=== PATIENT | male | born 1970 | race Caucasian/White ===

== ENCOUNTER 2016-07-13 01:01 | Inpatient (IN) | payer BC, OTHER ==
[~2016-07-13] VITALS: Ht 180.3 cm; Wt 102.6 kg
[2016-07-13] MEDS ORDERED: NITROGLYCERIN 0.4 MG SL PER TAB CHARGE SL STA (01:23)
--- NOTE | 2016-07-13 01:27 | EMERGENCY ROOM VISIT NOTE ---
History Report prepared by Nimco: Peggy Calhoun Under the Supervision of: Dr. Becky Cast D.O. First contact with patient: 01:11 Chief Complaint: CARDIAC ASSESSMENT Stated Complaint: PRESSURE IN LEFT ARM,PULSE NOT NORMAL Nursing Triage Summary: Patient ambulatory to triage, states "Over the weekend, my left hand was numb. I thought it was carpal tunnel. Today, I felt like I needed to take a lot of deep breaths. Tonight, I checked my pulse while lying in bed and it felt like it was skipping beats. I developed a little bit of tightness in my chest after that." No cardiac history. History of Present Illness The patient is a 45 year old male who presents to the Emergency Room with complaints of an persistent irregular heartbeat starting [employer]. The patient states that a few days ago he had some numbness and soreness in his left arm and hand and thought it was possibly carpal tunnel. The patient states that earlier today he states that he felt like he need to take deep breaths. He states that he then was lying in bed and felt his heart was beating irregularly which worried him causing him to come into the ED tonight. The patient states that he has some shortness of breath still, and denies any increase of physical activity lately. The patient states that he does have some increase in stress the last couple weeks. The patient denies any recent increased in diaphoresis or fevers. The patient states that he has never had his cholesterol checked but states he does smoke cigarettes. The patient states that his father had a myocardial infarction at around the age of 60 and had to have a stent placed. Source of History: patient Onset: [employer] Position: chest Timing: other (persistent) Associated Symptoms: + SOB, + numbness (left arm), No diaphoresis, No fevers Note: Associated symptoms: left arm soreness. Review of Systems See HPI for pertinent positives & negatives. A total of 10 systems reviewed and were otherwise negative. Past Medical & Surgical Medical Problems: (1) Chest pain (2) No Known Active Medical Problems Family History Heart disease Social History Smoking Status: Current Every Day Smoker Marital Status: Housing Status: lives with significant other Occupation Status: employed Current/Historical Medications No Active Prescriptions or Reported Meds Allergies Coded Allergies: Apple (Verified Allergy, Unknown, LIPS SWELL, 07/13/16) Snyder (Verified Allergy, Unknown, LIPS SWELL, 07/13/16) Uncoded Allergies: NEMOIL (Allergy, Unknown, RASH, 07/13/16) Physical Exam Vital Signs Date Time Temp Pulse Resp B/P Pulse Ox O2 Delivery O2 Flow Rate FiO2 07/13/16 04:30 60 15 137/90 99 Room Air 07/13/16 04:15 60 16 139/80 98 Room Air 07/13/16 04:00 57 12 146/98 99 Room Air 07/13/16 03:45 59 13 137/89 99 Room Air 07/13/16 03:30 65 16 157/97 98 Room Air 07/13/16 03:15 66 14 150/90 98 Room Air 07/13/16 03:00 63 14 136/93 98 Room Air 07/13/16 02:49 68 18 140/93 98 Room Air 07/13/16 02:37 67 18 125/90 98 Room Air 07/13/16 02:00 66 20 150/80 97 Room Air 07/13/16 01:51 72 07/13/16 01:45 60 18 147/87 96 Room Air 07/13/16 01:33 77 18 169/102 98 Room Air 07/13/16 01:23 76 07/13/16 01:07 36.9 69 18 149/95 100 Room Air 07/13/16 01:07 98 Room Air Physical Exam HEENT: Head - normocephalic and atraumatic Pupils are equal, round, and reactive to light. Extraocular eye muscles are intact, and sclera are anicteric. Nose - moist nasal mucosa without discharge. Mouth - moist buccal mucosa. Oropharynx is nonerythematous and there is no tonsillar exudate or edema noted. Neck: Supple; no JVD, nuchal rigidity, cervical lymphadenopathy, or auscultated bruits. Heart: Regular rate and rhythm. There is a normal S1 and S2 with no murmurs, clicks, or gallops appreciated. Lungs: Clear to auscultation bilaterally with no wheezes, rales, or rhonchi. Abdomen: Soft, completely nontender, nondistended, with good bowel sounds. There are no palpable pulsatile masses or hepatosplenomegaly. There is no guarding, rigidity, or rebound noted. Extremities: No evidence of cyanosis, clubbing, or edema. There are easily palpable peripheral pulses. Skin: warm and dry with good turgor and no rashes. Medical Decision & Procedures ER Provider Diagnostic Interpretation: X-ray results as stated below per interpretation by me: Chest X-Ray: No cardiomegaly. No pulmonary infiltrate. No pleural effusion. Laboratory Results 07/13/16 01:33 07/13/16 01:33 Test 07/13/16 01:33 Red Blood Count 5.13 M/uL (4.7-6.1) Mean Corpuscular Volume 90.3 fL (80-100) Mean Corpuscular Hemoglobin 31.0 pg (25-34) Mean Corpuscular Hemoglobin Concent 34.3 g/dl (32-36) RDW Standard Deviation 42.5 fL (36.4-46.3) RDW Coefficient of Variation 12.8 % (11.5-14.5) Mean Platelet Volume 9.7 fL (7.4-10.4) D-Dimer < 190 ug/L FEU (0-500) Anion Gap 9.0 mmol/L (3-11) Est Creatinine Clear Calc Drug Dose 140.2 ml/min Estimated GFR () 124.4 Estimated GFR (Non- 107.3 BUN/Creatinine Ratio 15.9 (10-20) Calcium Level 8.9 mg/dl (8.5-10.1) Total Bilirubin 0.5 mg/dl (0.2-1) Direct Bilirubin 0.1 mg/dl (0-0.2) Aspartate Amino Transf (AST/SGOT) 18 U/L (15-37) Alanine Aminotransferase (ALT/SGPT) 38 U/L (12-78) Alkaline Phosphatase 51 U/L (45-117) Total Creatine Kinase 179 U/L (39-308) Creatine Kinase MB 3.1 ng/ml (0.5-3.6) Creatine Kinase MB Ratio 1.7 (0-3.0) Troponin I < 0.015 ng/ml (0-0.045) Total Protein 7.4 gm/dl (6.4-8.2) Albumin 4.2 gm/dl (3.4-5.0) Triglycerides Level 79 mg/dl (0-150) Cholesterol Level 162 mg/dl (0-200) HDL Cholesterol 49 mg/dl LDL Cholesterol, Calculated 97 mg/dl VLDL Cholesterol, Calculated 16 mg/dl Cholesterol/HDL Ratio 3.3 Thyroid Stimulating Hormone (TSH) 4.430 uIu/ml (0.300-4.500) Laboratory results per my review. Medications Administered Medications (Trade) Dose Ordered Sig/Kyle Route Start Time Stop Time Status Last Admin Dose Admin Nitroglycerin (Nitrostat Tab) 0.4 mg NOW STAT SL 07/13/16 01:23 07/13/16 01:24 DC 07/13/16 01:34 0.4 MG Aspirin (Aspirin Chew) 324 mg NOW STAT PO 07/13/16 02:43 07/13/16 02:44 DC 07/13/16 02:47 324 MG Procedure Medications Administered: Nitroglycerin Aspirin ECG Indication: SOB/dyspnea, other (arm numbness) Rate (beats per minute): 63 Rhythm: normal sinus Findings: PVC, RBBB ED Course 0115: Past medical records reviewed. The patient was evaluated in room A2. A complete history and physical exam was performed. A twelve-lead EKG was obtained as described above. The patient was observed on the secured entrance monitor. An IV lock was initiated and labs were drawn as above. 0123: Ordered Nitroglycerin 0.4 mg SL. 0131: The patient states that nitroglycerin relieved the pain in his arm. 0243: Ordered Aspirin Chew 324 mg PO. 0252:I discussed the case with Dr. Harrison and Dr. Choudhury [facility]. They agreed to evaluate the patient for further management and care. Medical Decision The patient is a 45 year old male who presents to the ED with chest pain. Differential diagnosis includes cervical radiculopathy, left arm strain, anginal equivalent, and acute coronary syndrome. ' Labs: Normal white count Stable H&H Normal TSH Normal LFTs Normal renal function Normal glucose Negative cardiac enzymes D-dimer <190 The patient presents with a discomfort in the medial aspect of the left biceps region that he describes as a pressure and then an ache in his forearm. He also describes feeling as if he cannot get a deep enough breath. The patient has moderate risk factors for heart disease. His first set of cardiac enzymes were negative. I discussed the case with the [facility] hospitalist and they will evaluate for further management. Consults Time Called: [phone] Consulting Physician: Dr. Harrison and Dr. Choudhury [facility] Returned Call: [phone] I discussed the case with Dr. Harrison and Dr. Choudhury [facility]. They agreed to evaluate the patient for further management and care. Impression Primary Impression: Left arm pain Scribe Attestation The scribe's documentation has been prepared under my direction and personally reviewed by me in its entirety. I confirm that the note above accurately reflects all work, treatment, procedures, and medical decision making performed by me. Departure Information Dispostion Being Evaluated By Hospitalist Prescriptions No Active Prescriptions or Reported Meds Referrals No Doctor, Assigned (PCP) Patient Instructions My [facility]
[2016-07-13 01:44] LABS: HEMATOCRIT 46.3 % (42-52); MEAN CELL VOLUME 90.3 fL (80-100); MEAN CORPUSCULAR HGB CONC 34.3 g/dl (32-36); MEAN PLATELET VOLUME 9.7 fL (7.4-10.4); PLATELET COUNT 357 K/uL (130-400); RED BLOOD COUNT 5.13 M/uL (4.7-6.1); WHITE BLOOD COUNT 9.98 K/uL (4.8-10.8)
[2016-07-13 02:01] LABS: ALT/SGPT 38 U/L (12-78); AST/SGOT 18 U/L (15-37); BLOOD UREA NITROGEN 13 mg/dl (7-18); BUN/CREATININE RATIO 15.9 (10-20); CALCIUM 8.9 mg/dl (8.5-10.1); CARBON DIOXIDE 27 mmol/L (21-32); CHLORIDE 104 mmol/L (98-107); CREATININE 0.81 mg/dl (0.60-1.40); GLUCOSE 100 mg/dl (70-99); SODIUM 140 mmol/L (136-145)
[2016-07-13 02:12] LABS: ALKALINE PHOSPHATASE 51 U/L (45-117); CKMB/CK RATIO 1.7 (0-3.0)
[2016-07-13] MEDS ORDERED: ASPIRIN 81 MG CHEW PO STA (02:43)
[2016-07-13] MEDS ORDERED: POLYETHYLENE (MIRALAX) 17 GM PACK PO PRN (03:15)
[2016-07-13] MEDS ORDERED: ACETAMINOPHEN 325 MG TAB PO PRN (03:15)
[2016-07-13] MEDS ORDERED: ALUMINUM/MAGNESIUM/SIMETH (MAALOX MAX) 30 ML UDC PO PRN (03:15)
[2016-07-13] MEDS ORDERED: MoRPHine SULFATE 2 MG/ML CARP IV PRN (03:15)
[2016-07-13] MEDS ORDERED: NITROGLYCERIN 0.4 MG SL PER TAB CHARGE SL PRN (03:15)
[2016-07-13] MEDS ORDERED: ONDANSETRON INJ 2 MG/ML 2 ML VIAL IV PRN (03:15)
[2016-07-13 03:34] LABS: CHOLESTEROL 162 mg/dl (0-200); CHOLESTEROL/HDL RATIO 3.3; HDL CHOLESTEROL 49 mg/dl; LDL CHOLESTEROL CALCULATED 97 mg/dl; TRIGLYCERIDES 79 mg/dl (0-150); VERY LOW DENSITY LIPOPROT CALC 16 mg/dl
--- NOTE | 2016-07-13 04:31 | History and Physical ---
History & Physical Date & Time of Service: Jul 13, 2016 at 04:22 Chief Complaint: Pressure In Left Arm,Pulse Not Normal Primary Care Physician: No Doctor, Assigned History of Present Illness Source: patient, spouse Mello is a 45-year-old male, with significant smoking history, who presents with pain to the left arm. He reports initially it started with left hand numbness last week, which was intermittent initially. He reports the bottom of his left arm was starting to feel uncomfortable. Nothing made this better or worse. He also noticed that it was harder for him to take deep breaths throughout yesterday. He was not coughing and he denied any actual stabbing chest pain. He reports he was sitting in bed yesterday he would make an appointment with a primary care physician, which he does not have, then felt his pulse and it felt irregular. His also checked his pulse and also noticed it was irregular periods and they decided to come in to the ER. He denies any chest pain at the moment, and reports it improved after he received nitroglycerin tablet. Past Medical/Surgical History No previous medical history. No previous surgical history. Family History Heart disease Father in his 50s from an CA. Mother is otherwise healthy. 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 A total of 10 systems reviewed and were otherwise negative. Physical Exam Vital Signs Date Time Temp Pulse Resp B/P Pulse Ox O2 Delivery O2 Flow Rate FiO2 07/13/16 03:45 59 13 137/89 99 Room Air 07/13/16 03:30 65 16 157/97 98 Room Air 07/13/16 03:15 66 14 150/90 98 Room Air 07/13/16 03:00 63 14 136/93 98 Room Air 07/13/16 02:49 68 18 140/93 98 Room Air 07/13/16 02:37 67 18 125/90 98 Room Air 07/13/16 02:00 66 20 150/80 97 Room Air 07/13/16 01:51 72 07/13/16 01:45 60 18 147/87 96 Room Air 07/13/16 01:33 77 18 169/102 98 Room Air 07/13/16 01:23 76 07/13/16 01:07 36.9 69 18 149/95 100 Room Air 07/13/16 01:07 98 Room Air GENERAL: Awake, alert, well-appearing, in no acute distress HENT: Normocephalic, atraumatic. Oropharynx unremarkable. EYES: Normal conjunctiva. Sclera non-icteric. NECK: Supple. No nuchal rigidity. FROM. No JVD. RESPIRATORY: Clear to auscultation. CARDIAC: Regular rate, normal rhythm. Extremities warm and well perfused. Pulses equal. ABDOMEN: Soft, non-distended. No tenderness to palpation. No rebound or guarding. No masses. RECTAL: Deferred. MUSCULOSKELETAL: Chest examination reveals no tenderness. The back is symmetrical on inspection without obvious abnormality. There is no CVA tenderness to palpation. No joint edema. LOWER EXTREMITIES: Calves are equal size bilaterally and non-tender. No edema. No discoloration. NEURO: Normal sensorium. No sensory or motor deficits noted. SKIN: No rash or jaundice noted. Diagnostics Laboratory Results Results Past 24 Hours Test 07/13/16 01:33 Range/Units White Blood Count 9.98 4.8-10.8 K/uL Red Blood Count 5.13 4.7-6.1 M/uL Hemoglobin 15.9 14.0-18.0 g/dL Hematocrit 46.3 42-52 % Mean Corpuscular Volume 90.3 80-100 fL Mean Corpuscular Hemoglobin 31.0 25-34 pg Mean Corpuscular Hemoglobin Concent 34.3 32-36 g/dl RDW Standard Deviation 42.5 36.4-46.3 fL RDW Coefficient of Variation 12.8 11.5-14.5 % Platelet Count 357 130-400 K/uL Mean Platelet Volume 9.7 7.4-10.4 fL D-Dimer < 190 0-500 ug/L FEU Sodium Level 140 136-145 mmol/L Potassium Level 4.0 3.5-5.1 mmol/L Chloride Level 104 98-107 mmol/L Carbon Dioxide Level 27 21-32 mmol/L Anion Gap 9.0 3-11 mmol/L Blood Urea Nitrogen 13 7-18 mg/dl Creatinine 0.81 0.60-1.40 mg/dl Est Creatinine Clear Calc Drug Dose 140.2 ml/min Estimated GFR () 124.4 Estimated GFR (Non- 107.3 BUN/Creatinine Ratio 15.9 10-20 Random Glucose 100 70-99 mg/dl Calcium Level 8.9 8.5-10.1 mg/dl Total Bilirubin 0.5 0.2-1 mg/dl Direct Bilirubin 0.1 0-0.2 mg/dl Aspartate Amino Transf (AST/SGOT) 18 15-37 U/L Alanine Aminotransferase (ALT/SGPT) 38 12-78 U/L Alkaline Phosphatase 51 45-117 U/L Total Creatine Kinase 179 39-308 U/L Creatine Kinase MB 3.1 0.5-3.6 ng/ml Creatine Kinase MB Ratio 1.7 0-3.0 Troponin I < 0.015 0-0.045 ng/ml Total Protein 7.4 6.4-8.2 gm/dl Albumin 4.2 3.4-5.0 gm/dl Triglycerides Level 79 0-150 mg/dl Cholesterol Level 162 0-200 mg/dl HDL Cholesterol 49 mg/dl LDL Cholesterol, Calculated 97 mg/dl VLDL Cholesterol, Calculated 16 mg/dl Cholesterol/HDL Ratio 3.3 Thyroid Stimulating Hormone (TSH) 4.430 0.300-4.500 uIu/ml CXR normal Normal EKG (RBBB), No prior EKG available Impression Assessment and Plan 45-year-old male smoker who presents with left arm pain and shortness of breath , which improved after nitroglycerin - top differential is currently angina, though could also be muscular, neurological pain, or pneumonia. Plan: Angina - Trend cardiac enzymes - Stress echo in AM - Telemetry monitoring - Check lipids Frequent PVC's - Monitor electrolytes Smoking history - Smoking cessation discussed, pt is motivated to stop VTE - Heparin Level of Care Telemetry Resuscitation Status FULL RESUSCITATION VTE Prophylaxis VTE Risk Assessment Done? Y/N: Yes Risk Level: Moderate Given or contraindicated: SCD's Resident Tracking Resident Involvement: Resident Care Provided Care Provided: Adult [facility] Medicine Assessment and Plan Attending Addendum: I have physically seen and examined this patient, have directed their medical care, have supervised the medical residents activities, and agree with the H&P as noted above, with the following changes: The patient is awake, well-developed and adequately nourished, alert and oriented 3, normocephalic and atraumatic, lying in bed and in no acute distress. HEENT--PERRL, EOMI, mucous membranes and oropharynx dry. Neck--supple, no JVD or bruits, thyroid normal, trachea midline, no adenopathy. Heart--normal S1 and S2, no extra beats, no murmurs, rubs or gallops. Lungs--clear bilaterally with good air movement, no respiratory distress, no accessory muscle use. Abdomen--normal bowel sounds and soft, nontender and nondistended, no hernias or masses, no organomegaly. Extremities--no cyanosis, clubbing or edema. There are good distal pulses b/l. Dermatologic--normal skin turgor, normal color, warm and dry, no abnormal lymph nodes, no rash. Neurologic--cranial nerves II through XII grossly intact, motor and sensory examination normal. Rheumatologic--normal range of motion, nontender, muscles and joints. Psychiatric--normal affect. Assessment and Plan: Chest/Left arm discomfort--patient has a family history of father with premature coronary artery disease and from an CA in his early 50s. He is also currently every day smoker. He reports that his chest discomfort and left arm pain was improved after receiving nitroglycerin tablet. He'll be admitted to the telemetry unit, for serial cardiac enzymes, cardiac rhythm monitoring and a 2-D echocardiogram with Dopplers. If the above testing is negative, he will need a stress echocardiogram prior to discharge. Place on aspirin 81 mg by mouth every morning, Sublingual nitroglycerin available for any return of chest discomfort. However, his blood pressure has improved significantly without any other intervention, heart rate remains in the low 60s so he is not a candidate for beta blockers or Nitropaste. We'll check a fasting lipid profile in the a.m. Tobacco use disorder --reaffirmed again the need for him to quit smoking.
[2016-07-13 05:39] VITALS: BP 142/88; PULSE 62; TEMP 36.8; O2SAT 98; Ht 180.3 cm; Wt 102.6 kg
--- NOTE | 2016-07-13 06:54 | DIAGNOSTIC IMAGING REPORT ---
CHEST ONE VIEW PORTABLE CLINICAL HISTORY: left arm pain pain COMPARISON STUDY: No previous studies for comparison. FINDINGS: The bones soft tissues and hemidiaphragms are normal. The cardiomediastinal silhouette is normal. The lungs are clear. The pulmonary vasculature is normal. IMPRESSION: Negative chest. Electronically signed by: Ari Nazario M.D. 07/13/2016 6:53 AM Dictated Date/Time: 07/13/2016 6:53 AM
--- NOTE | 2016-07-13 07:07 | Family Medicine Progress Note ---
Progress Note Date of Service Jul 13, 2016. Subjective Pt evaluation today including: conversation w/ patient, physical exam, chart review, lab review The patient was seen and examined at bedside. No acute overnight events. Pt has no complaints at presents, reports that his left arm tightness resolved in the ER after administration of nitro. Telemetry monitoring showed sinus rhythm in the 60s and 70s. Patient is resting comfortably in bed and is answering questions appropriately. Pt is NPO due to possible stress echo today - pt denies feeling hungry. ROS: Denies chest pain, denies SOB, denies swelling of the hands or feet, denies fevers, denies vomiting, is able to ambulate to the latrine for a BM. Plan of care was described to the patient and all questions were answered. 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 FMHx is significant of dad who had an KS in his 50s - also a smoker. Left Arm Pressure x 3 days - Occurs at rest and during activity, has been present for the majority of the past 3 days, was relieved with nitro. Telemetry monitoring showed sinus rhythm with PVCs, with a rate in the 60s and 70s. - Trop neg x 1, follow up x 2. - Stress echo in AM - Aspirin 81mg QAM. - If echo is normal, pt can likely be discharged today. Will consider Atorvastatin 20mg on discharge. Smoking history - Smoking cessation discussed, pt is motivated to stop, does not want nicotine patches or gum at present. DVT Proph: Lovenox 40mg SQ QAM. Dispo - Tele, Pt does not have a PCP, Full Code. Resident Involvement: Resident Care Provided Care Provided: Adult Hospital Medicine
[2016-07-13 07:49] VITALS: BP 180/93; PULSE 61; TEMP 36.8; O2SAT 98
[2016-07-13] MEDS ORDERED: ASPIRIN 81 MG ECTAB PO SCH (09:00)
[2016-07-13 10:19] LABS: CKMB/CK RATIO 1.7 (0-3.0)
[2016-07-13] MEDS ORDERED: PERFLUTREN LIPID MICROSPHERE (DEFINITY) IV ONE (11:38)
--- NOTE | 2016-07-13 12:25 | EXERCISE STRESS ECHO ---
*NOTICE TO RECEIVING DEMOCRAT AGENCY This information is strictly Confidential and protected under [place] law. [place] law prohibits you from making any further disclosure of this information unless further disclosure is expressly permitted by the written consent of the person to whom it pertains or is authorized by law. A general authorization for the release of medical or other information is not sufficient for this purpose. Hospital accepts no responsibility if the information is made available to any other person, INCLUDING THE PATIENT. Interpretation Summary * Name: KONRAD LOPEZ Study Date: 07/13/2016 10:23 AM BP: 136/93 mmHg * Patient Location: [facility] HR: 62 * : 1970 (M/d/yyyy) Gender: Male Height: 71 in * Age: 45 yrs Ethnicity: CA Weight: 225 lb * Ordering Physician: Karissa Harrison * Referring Physician: MIMI * Performed By: Naya Cota RDCS * * Reason For Study: CHEST PAIN * BSA: 2.2 m2 * History: CHEST PAIN * -- Conclusions -- * Stress Echo: * 1. Negative exercise stress echo for ischemia at 88% MPHR. * 2. Negative exercise ECG for ischemia at 88% MPHR. * 3. No chest pain reported. * 4. No arrhythmia. Rare PVC. * 5. Hypertensive response to exercise. * 6. Fair exercise tolerance. * 7. Technically difficult study, enhanced with IV Definity. * Echo: * 1. Normal left ventricular size and systolic function. EF 60-65%. No regional wall motion abnormalities. Mild to moderate concentric left ventricular hypertrophy. * 2. No significant valvular abnormalities visualized. * 3. No prior study available for comparison. Procedure Details * A contrast injection of Definity was performed to improve assessment of LV function. * Contrast was injected into an intravenous site in the right arm. * One vial of Definity ultrasound contrast was diluted in normal saline to a total volume of 10 ml. A total of '4' ml of solution was administered during imaging. * Lot # [id number] of Definity utilized for procedure. * Expiration date AUG 10. * The attending nurse who injected the contrast agent was FAYE CROWELL RN. Left Ventricle * The left ventricle is normal in size. * Mild to moderate concentric left ventricular hypertrophy. * Ejection Fraction = 60-65%. * Left ventricular systolic function is normal. * Resting wall motion: Normal. Stress wall motion: Appropriate increase in Left ventricular systolic function and decrease in cavity size. No stress induced segmental wall motion abnormalities. * The left ventricular ejection fraction increases normally with stress. The left ventricular end-systolic cavity size reduces post-stress (normal response). The left ventricular wall motion with stress is normal. Right Ventricle * The right ventricle is normal in size and function. * The right ventricular systolic function is normal as assessed by tricuspid annular plane systolic excursion (TAPSE) (normal >1.5 cm). Atria * The left atrial size is normal. * Right atrial size is normal. * There is no evidence of atrial septal defect, but resolution does not allow assessment for a patent foramen ovale. Mitral Valve * The mitral valve is grossly normal. * There is no mitral valve stenosis. * There is trace mitral regurgitation. Tricuspid Valve * The tricuspid valve is not well visualized, but is grossly normal. * There is no tricuspid stenosis. * Significant tricuspid regurgitation is absent. Aortic Valve * The aortic valve is normal in structure and function. * The aortic valve is trileaflet. * No hemodynamically significant valvular aortic stenosis. * No aortic regurgitation is present. Pulmonic Valve * The pulmonary valve is inadequately visualized, but the Doppler data is adequate for interpretation. * Trace pulmonic valvular regurgitation. Great Vessels * The aortic root is normal size. * Ascending aorta of normal dimension * Aortic arch of normal dimension. * IVC appears small in diameter. Pericardium * There is no pericardial effusion. Stress Parameters * NSR at 67 bpm. RBBB. * Stress ECG: No ST changes. No arrhythmias. * No arrhythmia were noted with stress. * The stress portion of this study was personally supervised by the undersigned interpreting physician. * Rest heart rate was '62' BPM. * Rest blood pressure was '136/93' * Maximum heart rate achieved was 155 bpm. * Maximum heart rate was 88 % of maximum age-predicted heart rate. * Maximum blood pressure was '200/80' * Total exercise time was '7:30' * Maximum exercise MET level achieved was '9.30' METS * Maximum treadmill speed was '3.40' miles per hour. * Maximum treadmill elevation was '14.00'% grade. * Exercise was terminated due to 'ACHIEVING TARGET HR' * Exercise-induced hypertension. MMode 2D Measurements and Calculations IVSd 1.4 cm IVSs 1.5 cm LVIDd 5.0 cm LVIDs 3.4 cm LVPWd 1.2 cm LVPWs 1.6 cm IVS/LVPW 1.1 FS 32.5 % EDV(Teich) 118.2 ml ESV(Teich) 46.5 ml EF(Teich) 60.7 % EDV(cubed) 124.9 ml ESV(cubed) 38.3 ml EF(cubed) 69.3 % % IVS thick 9.5 % % LVPW thick 29.3 % LV mass(C)d 260.0 grams LV mass(C)dI 117.3 grams/m\S\2 LV mass(C)s 191.8 grams LV mass(C)sI 86.5 grams/m\S\2 SV(Teich) 71.7 ml SI(Teich) 32.3 ml/m\S\2 SV(cubed) 86.6 ml SI(cubed) 39.0 ml/m\S\2 Ao root diam 3.4 cm Ao root area 9.1 cm\S\2 LA dimension 3.2 cm asc Aorta Diam 2.8 cm LA/Ao 0.93 LVAd ap4 38.0 cm\S\2 LVLd ap4 9.1 cm EDV(MOD-sp4) 131.5 ml EDV(sp4-el) 135.6 ml LVAs ap4 21.1 cm\S\2 LVLs ap4 7.2 cm ESV(MOD-sp4) 55.5 ml ESV(sp4-el) 52.7 ml EF(MOD-sp4) 57.8 % EF(sp4-el) 61.1 % SV(MOD-sp4) 76.1 ml SI(MOD-sp4) 34.3 ml/m\S\2 SV(sp4-el) 82.9 ml SI(sp4-el) 37.4 ml/m\S\2 Doppler Measurements and Calculations MV E max katty 72.3 cm/sec MV A max katty 48.0 cm/sec MV E/A 1.5 MV dec time 0.25 sec Ao V2 max 134.7 cm/sec Ao max PG 7.3 mmHg Ao max PG (full) 3.5 mmHg LV V1 max PG 3.8 mmHg LV V1 max 97.5 cm/sec TV E max katty 50.9 cm/sec RAP systole 3.0 mmHg
[2016-07-13 12:53] LABS: PARTIAL THROMBOPLASTIN RATIO 0.9
[2016-07-13] MEDS ORDERED: ENOXAPARIN 40 MG/0.4 ML SYR SQ ONE (13:00)
[2016-07-13] MEDS ORDERED: ATOR-22 PO (14:16)
--- NOTE | 2016-07-13 14:23 | Discharge Instructions ---
Discharge Instructions Date of Service Jul 13, 2016. (Ari Nichols M.D.) Admission Reason for Admission: Chest Pain (Ari Nichols M.D.) Discharge Discharge Diagnosis / Problem: Atypical Chest Pain (Ari Nichols M.D.) Discharge Goals Goal(s): Decrease discomfort, Improve function, Increase independence, Learn about illness (Ari Nichols M.D.) Activity Recommendations Activity Limitations: resume your previous activity . (Ari Nichols M.D.) Instructions / Follow-Up Instructions / Follow-Up Follow up with a Primary Care Provider within the next week. We have made an appointment with Dr. Karissa Harrison on TuesdayJuly 16 at 9:10am. Dr. Harrison is located at [address] [place] [address], [address] ( The building next to [facility]) You have been discharged on a new medication, Atorvastatin. You are to take 1 pill every day for the next 30 days. Your primary care doctor may wish to continue this on your follow up visit. Atorvastatin may cause muscle aches and pains. We advise you to stop taking the medication if you experience muscle pain while on this medication. Report this adverse effect to your primary care doctor. We strong encourage you to quit smoking. Your primary care provider will be able to provide materials to help in smoking cessation. If you experience any recurrences of your arm tightness we recommend following up with your primary care provider or to return to the ER. (Ari Nichols M.D.) Current Hospital Diet Patient's current hospital diet: AHA Diet (Heart Healthy) (Ari Nichols M.D.) Discharge Diet Recommended Diet: Regular Diet (Ari Nichols M.D.) Pending Studies Studies pending at discharge: no (Ari Nichols M.D.) Laboratory Results Lipid Panel Test 07/13/16 01:33 Range/Units Triglycerides Level 79 0-150 mg/dl Cholesterol Level 162 0-200 mg/dl HDL Cholesterol 49 mg/dl Cholesterol/HDL Ratio 3.3 LDL Cholesterol, Calculated 97 mg/dl (Ari Nichols M.D.) Medical Emergencies . Who to Call and When: Medical Emergencies: If at any time you feel your situation is an emergency, please call 911 immediately. . (Ari Nichols M.D.) Non-Emergent Contact Non-Emergency issues call your: Primary Care Provider . (Ari Nichols M.D.) . "Provider Documentation" section prepared by Ari Nichols. (Ari Nichols M.D.) VTE Core Measure Inpt VTE Proph given/why not?: Enoxaparin (Lovenox)SQ (Ari Nichols M.D.) Resident Involvement: Resident Care Provided Care Provided: Adult Hospital Medicine (Ari Nichols M.D.)
--- NOTE | 2016-07-13 14:33 | Discharge Summary ---
Discharge Summary Date of Service Jul 13, 2016. (Ari Fonseca M.D.) Discharge Summary Admission Date: Jul 13, 2016 at 03:12 Discharge Date: Jul 13, 2016 Discharge Disposition: Home Principal Diagnosis: Atypical Left Arm Pain (Ari Fonseca M.D.) Consultations: Interpretation Summary * Name: KONRAD LOPEZ Study Date: 07/13/2016 10:23 AM BP: 136/93 mmHg * Patient Location: [facility] HR: 62 * : 1970 (M/d/yyyy) Gender: Male Height: 71 in * Age: 45 yrs Ethnicity: [place] Weight: 225 lb * Ordering Physician: Karissa Harrison * Referring Physician: MIMI * Performed By: Naya Cota RDCS * * Reason For Study: CHEST PAIN * BSA: 2.2 m2 * History: CHEST PAIN * -- Conclusions -- * Stress Echo: * 1. Negative exercise stress echo for ischemia at 88% MPHR. * 2. Negative exercise ECG for ischemia at 88% MPHR. * 3. No chest pain reported. * 4. No arrhythmia. Rare PVC. * 5. Hypertensive response to exercise. * 6. Fair exercise tolerance. * 7. Technically difficult study, enhanced with IV Definity. * Echo: * 1. Normal left ventricular size and systolic function. EF 60-65%. No regional wall motion abnormalities. Mild to moderate concentric left ventricular hypertrophy. * 2. No significant valvular abnormalities visualized. * 3. No prior study available for comparison. Procedure Details * A contrast injection of Definity was performed to improve assessment of LV function. * Contrast was injected into an intravenous site in the right arm. * One vial of Definity ultrasound contrast was diluted in normal saline to a total volume of 10 ml. A total of '4' ml of solution was administered during imaging. * Lot # [id number] of Definity utilized for procedure. * Expiration date AUG 10. * The attending nurse who injected the contrast agent was FAYE CROWELL RN. Left Ventricle * The left ventricle is normal in size. * Mild to moderate concentric left ventricular hypertrophy. * Ejection Fraction = 60-65%. * Left ventricular systolic function is normal. * Resting wall motion: Normal. Stress wall motion: Appropriate increase in Left ventricular systolic function and decrease in cavity size. No stress induced segmental wall motion abnormalities. * The left ventricular ejection fraction increases normally with stress. The left ventricular end-systolic cavity size reduces post-stress (normal response). The left ventricular wall motion with stress is normal. Right Ventricle * The right ventricle is normal in size and function. * The right ventricular systolic function is normal as assessed by tricuspid annular plane systolic excursion (TAPSE) (normal >1.5 cm). Atria * The left atrial size is normal. * Right atrial size is normal. * There is no evidence of atrial septal defect, but resolution does not allow assessment for a patent foramen ovale. Mitral Valve * The mitral valve is grossly normal. * There is no mitral valve stenosis. * There is trace mitral regurgitation. Tricuspid Valve * The tricuspid valve is not well visualized, but is grossly normal. * There is no tricuspid stenosis. * Significant tricuspid regurgitation is absent. Aortic Valve * The aortic valve is normal in structure and function. * The aortic valve is trileaflet. * No hemodynamically significant valvular aortic stenosis. * No aortic regurgitation is present. Pulmonic Valve * The pulmonary valve is inadequately visualized, but the Doppler data is adequate for interpretation. * Trace pulmonic valvular regurgitation. Great Vessels * The aortic root is normal size. * Ascending aorta of normal dimension * Aortic arch of normal dimension. * IVC appears small in diameter. Pericardium * There is no pericardial effusion. Stress Parameters * NSR at 67 bpm. RBBB. * Stress ECG: No ST changes. No arrhythmias. * No arrhythmia were noted with stress. * The stress portion of this study was personally supervised by the undersigned interpreting physician. * Rest heart rate was '62' BPM. * Rest blood pressure was '136/93' * Maximum heart rate achieved was 155 bpm. * Maximum heart rate was 88 % of maximum age-predicted heart rate. * Maximum blood pressure was '200/80' * Total exercise time was '7:30' * Maximum exercise MET level achieved was '9.30' METS * Maximum treadmill speed was '3.40' miles per hour. * Maximum treadmill elevation was '14.00'% grade. * Exercise was terminated due to 'ACHIEVING TARGET HR' * Exercise-induced hypertension. (Srinath Mckeon D.Barb.) Medication Reconciliation New Medications: Atorvastatin (Lipitor) 20 Mg Tab 1 TAB PO DAILY for 30 Days, #30 TAB 0 Refills Discharge Exam Subjective The patient was seen and examined at bedside. No acute overnight events. Pt has no complaints at presents, reports that his left arm tightness resolved in the ER after administration of nitro. Telemetry monitoring showed sinus rhythm in the 60s and 70s. Patient is resting comfortably in bed and is answering questions appropriately. Pt is NPO due to possible stress echo today - pt denies feeling hungry. ROS: Denies chest pain, denies SOB, denies swelling of the hands or feet, denies fevers, denies vomiting, is able to ambulate to the latrine for a BM. Plan of care was described to the patient and all questions were answered. Objective Physical Exam General Appearance: WD/WN, no apparent distress Respiratory/Chest: chest non-tender, lungs clear, normal breath sounds, no respiratory distress, no accessory muscle use Cardiovascular: regular rate, rhythm, no edema, no gallop, no JVD, no murmur Abdomen: normal bowel sounds, non tender, soft, no organomegaly, no pulsatile mass Extremities: normal range of motion, non-tender, normal inspection, no pedal edema, no calf tenderness Neurologic/Psychiatric: administrative fellow II-XII nml as tested, no motor/sensory deficits, alert, normal mood/affect, oriented x 3 (Ari Fonseca M.D.) Hospital Course 45M w no significant PMHx presents with a 3 day history of left arm pain which improved after nitroglycerin. FMHx is significant of dad who had an SD in his 50s. Pt also smokes half a pack per day. EKG was grossly normal. Trops negative. Stress echo was normal. A cardiac cause of the chest pain was ruled out. A lipid profile was ordered and based on the pt's ASCVD risk score, patient was discharged on Atorvastatin 20mg daily. Patient was also counselled on smoking cessation and is interested in obtaining materials and therapy to help with his smoking addiction. Pt follow up was organized with Dr. Karissa Harrison on TuesdayJuly 16 at 9: 10am. Patient was given written discharge instruction with this appointment date. Total Time Spent: Greater than 30 minutes This includes examination of the patient, discharge planning, medication reconciliation, and communication with other providers. (Ari Fonseca M.D.) presented with chest pain, L arm pain - ongoing for a long time. ruled out for SD w serial enzymes. stress echo negative. D dimer negative. most likely MSK pain and palpitations due to ectopy. stable for home. lipids up for risk - agree w starting atorvastatin. to establish and f/u w PCP in short order ( likely will establish w dr fonseca) - stable for home. Total Time Spent: Less than 30 minutes (Srinath Mckeon D.Barb.) Discharge Instructions Please refer to the electronic Patient Visit Report (Discharge Instructions) for additional information. (Ari Fonseca M.D.) Follow-Up Dr. Karissa Harrison on TuesdayJuly 16 at 9:10am. (Ari Fonseca M.D.) Additional Copies To Karissa Harrison .MD Resident Involvement: Resident Care Provided Care Provided: Adult [facility] Medicine (Ari Fonseca M.D.)
[2016-07-13 14:46] VITALS: BP 180/93; PULSE 61; TEMP 36.8; O2SAT 98
[2016-07-14] MEDS ORDERED: ENOXAPARIN 40 MG/0.4 ML SYR SQ SCH (09:00)
== END 2016-07-13 15:35 | disposition home or self-care (01) | DRG 313 ==
LOC: ENRESERVTM → ENRESERVDT → C.EDB 01:03 → C.2E 03:12
PROVIDERS: ADMIT Hospitalist; ATTEND Family Medicine
DX: R07.89 Other chest pain (principal); M79.622 Pain in left upper arm; F17.210 Nicotine dependence, cigarettes, uncomplicated; Z82.41 Family history of sudden cardiac death; I49.3 Ventricular premature depolarization; I45.10 Unspecified right bundle-branch block